=== PATIENT | female | born 1985 | race Hispanic/Latino ===

== ENCOUNTER 2020-06-04 09:13 | Emergency (ER) | payer OTHER ==
[~2020-06-04] VITALS: Ht 162.6 cm; Wt 60.8 kg
--- NOTE | 2020-06-04 09:59 | Emergency Department Note ---
History of Present Illnes History of Present Illness Chief Complaint: Skin Rash or Abscess History of Present Illness This is a 35 year old female Patient in from home with complaints of a painful abscess to her left axilla. Patient reports that it has been there 10 days and that she went to an urgent care where it was poked 4 times with a needle and squeezed and she was sent home on antibiotics (Bactrim DS x 7 days - has 1 dose left). Patient presents today with an approx. 1.5cm round indurated abscess to her left axilla with some reported drainage. Patient is not in any acute distress. VSS. Arrival Mode: Car Tier Over Required: No Onset (how long ago): day(s) (10) Location: left axilla Quality: abscess Radiation: Reports non-radiation Severity: moderate Onset quality: gradual Timing of current episode: constant Progression: unchanged Chronicity: new Context: Denies recent illness Relieving factors: none Exacerbating factors: none Associated symptoms: Reports denies other symptoms Past Medical/Family History Physician Review I have reviewed the patient's past medical and family history. Any updates have been documented here. Past Medical History Recent Fever: No Clinical Suspicion of Infectio: No New/Unexplained Change in Ment: No Other Surgery: breast augmentation Social History Smoking Cessation: Never Smoker Counseling Performed: No Alcohol Use: None Any Illegal Drug Use: No TB Exposure/Symptoms: No Physically hurt or threatened: No Family History Family history of heart diseas: No Other Any Pre-Existing Lines (PICC,: No Review of Systems Review of Systems Constitutional: Reports no symptoms EENTM: Reports no symptoms Cardiovascular: Reports no symptoms Respiratory: Reports no symptoms Gastrointestinal: Reports no symptoms Genitourinary: Reports no symptoms Musculoskeletal: Reports no symptoms Integumentary: Reports as per HPI Neurological: Reports no symptoms Psychological: Reports no symptoms Endocrine: Reports no symptoms Hematological/Lymphatic: Reports no symptoms Physical Exam Related Data Allergies: Coded Allergies: No Known Allergies (Unverified , 06/04/20) Triage Vital Signs Vital Signs Date Time Temp Pulse Resp B/P (MAP) Pulse Ox O2 Delivery O2 Flow Rate FiO2 06/04/20 09:17 97.2 86 16 125/87 100 Room Air Vital signs reviewed: Yes Physical Exam CONSTITUTIONAL Constitutional: Present well-developed, Present well-nourished HENT HENT: Present normocephalic, Present atraumatic, Present oropharynx clear/moist, Present nose normal HENT L/R: Present left ext ear normal, Present right ext ear normal EYES Eyes: Reports PERRL, Reports conjunctivae normal NECK Neck: Present ROM normal PULMONARY Pulmonary: Present effort normal, Present breath sounds normal CARDIOVASCULAR Cardiovascular: Present regular rhythm, Present heart sounds normal, Present capillary refill normal, Present normal rate GASTROINTESTINAL Abdominal: Present soft, Present nontender, Present bowel sounds normal GENITOURINARY Genitourinary: Present exam deferred SKIN Skin: Present warm, Present dry, Present lesion (4x2 cm abscess left axilla with a couple small puncture sites with purulent discharge, indurated at periphe ry, fluctuant in the middle) MUSCULOSKELETAL Musculoskeletal: Present ROM normal NEUROLOGICAL Neurological: Present alert, Present oriented x 3, Present no gross motor or sensory deficits PSYCHOLOGICAL Psychological: Present mood/affect normal, Present judgement normal Procedures Incision and Drain Emergent situation: No Type of anesthesia: local Risks and benefits discussed: Yes Verbal consent obtained: Yes Written consent obtained: No Consent given by: patient Imaging studies available/revi: not applicable Prepped and draped in sterile: Yes Two patient identifiers confir: name, date of , medical record number Identity confirmed by: patient Procedure verified: Yes Side verified: yes Site verified: yes Site marked: no Type: abscess Size: 4x2cm Site: other (left axilla) Skin preparation: Betadine Anesthesia method: local infiltration Patient sedated: No Incision type: single straight Incision depth: dermal Scalpel blade: 11 Wound management: probed and deloculated, irrigated with saline Drainage: purulent Drainage amount: moderate Packing used: 1/4 in iodoform gauze Patient tolerance: tolerated well Procedure attestation: I performed the procedure Assessment & Plan Medical Decision Making [facility] abscess - will I&D Reassessment Reassessment DC Home, Clindamycin 300 q6hr x 7 days, F/U PRABHAKAR Edwards prn, Tyl/Motrin as directed Assessment & Plan Final Impression: (1) Abscess of axilla, left Depart Disposition: HOME, SELF-CARE Last Vital Signs Date Time Temp Pulse Resp B/P (MAP) Pulse Ox O2 Delivery O2 Flow Rate FiO2 06/04/20 09:17 97.2 86 16 125/87 100 Room Air MARY ANN DANIELLE MD Jun 04, 2020 09:58
== END 2020-06-04 10:05 | disposition home or self-care (01) ==
LOC: ER 09:25
DX: L02.412 Cutaneous abscess of left axilla (principal)
CPT/HCPCS: 99284

== ENCOUNTER → 2020-06-09 | Day surgery (SDC) | payer OTHER ==
[~2020-06-09] MED LIST: CLINDAMYCIN HC150 MG PO; DEXAMETHASONE SOD PHOS INJ 4 MG/ML VIAL ONE; FENTANYL CITRATE/PF 100MCG/2 ML INJ ONE; HYDROCODONE/APAP 7.5MG-325MG 1 EA TAB ONE; LIDOCAINE HCL 2% LOCAL INJ 5 ML SDV VIAL INJ ONE; MIDAZOLAM HCL 2 MG/2 ML VIAL ONE; ONDANSETRON HCL INJ 2MG/ML 2ML 2 MG/ML VIAL ONE; PROPOFOL IV EMULSION 10 MG/ML 20 ML VIAL ONE; SEVOFLURANE INHAL SOLN 250 ML PEN BTL ONE
[2020-06-09 09:10] LABS: BASOPHILS % 0.4 % (0.0-1.0); EOSINOPHILS # (AUTO) 0.1 (0.0-0.4); EOSINOPHILS % 1.6 % (0.0-6.0); HEMATOCRIT 43.2 % (34.2-44.1); HEMOGLOBIN 14.2 g/dL (12.0-16.0); LYMPHOCYTES # (AUTO) 2.3 (1.0-3.2); LYMPHOCYTES % 33.2 % (18.0-39.1); MEAN CORPUSCULAR HEMOGLOBIN 27.9 pg (28-32); MEAN CORPUSCULAR HGB CONC 32.9 g/dL (31-35); MEAN CORPUSCULAR VOLUME 84.9 fL (81-99); MONOCYTES # (AUTO) 0.5 (0.2-0.8); MONOCYTES % 7.6 % (4.4-11.3); NEUTROPHILS # (AUTO) 3.9 (2.1-6.9); NEUTROPHILS % 56.6 % (38.7-80.0); PLATELET COUNT 295 x10e3/uL (140-360); RED BLOOD COUNT 5.09 x10e6/uL (3.6-5.1); RED CELL DISTRIBUTION WIDTH 12.1 % (11.7-14.4)
[2020-06-09 09:44] LABS: BLOOD UREA NITROGEN 13 mg/dL (7-26); BUN/CREATININE RATIO 19 (6-25); CALCIUM 9.2 mg/dL (8.4-10.2); CARBON DIOXIDE 27 mmol/L (22-29); CHLORIDE 104 mmol/L (98-107); EST GLOMERULAR FILTRATION RATE > 60 ML/MIN (60-); GLUCOSE 85 mg/dL (74-118); SODIUM 139 mmol/L (136-145)
--- NOTE | 2020-06-09 12:25 | Operative Report ---
DATE OF PROCEDURE: 06/09/2020 SURGEON: Dangelo Cabrera MD PREOPERATIVE DIAGNOSIS: Infected epidermal inclusion cyst of the left axilla with abscess formation, bilateral breast implant. POSTOPERATIVE DIAGNOSIS: Infected epidermal inclusion cyst of the left axilla with abscess formation, bilateral breast implant. PROCEDURE PERFORMED: Incision and drainage of infected cyst of the left axillary region with abscess formation and debridement of necrotic tissue. ANESTHESIA: LMA. ESTIMATED BLOOD LOSS: Minimal. DRAINS: None. COMPLICATIONS: None. INDICATIONS AND FINDINGS: The patient is a 35-year-old female, admitted for incision and drainage and debridement of infected cyst of the left axillary region. She had been started on oral antibiotic, drained as an outpatient and the patient was referred to my office for further follow up. She was found to have an abscess of the left axillary region that had been previously attempted to be drained at an outpatient clinic, this required further surgical treatment. INTRAOPERATIVE FINDINGS: Infected epidermal inclusion cyst of the left axillary regions with abscess formation, gross cyst lining and debris was removed down to grossly normal tissue. Aerobic and anaerobic cultures were taken. DESCRIPTION OF PROCEDURE: With the patient lying on the operative table in supine position after administration of general anesthesia, she was prepped and draped for incision and drainage of infected cyst of the left axillary region. The skin overlying the cyst with the granulation tissue was excised. The cavity entered. The cyst lining was removed as much as it could be done. Bleeding points were cauterized. The wound irrigated and packed with Betadine sponge. Sterile dressing was applied. The patient tolerated the procedure well, was taken to the recovery room in stable condition. MD MURTAZA Menchaca/MODL /[id number]
[2020-06-09 12:40] VITALS: BP 125/75
== END | disposition home or self-care (01) ==
LOC: OR 07:54
PROVIDERS: ATTEND Surgery
DX: L02.412 Cutaneous abscess of left axilla (principal); L72.0 Epidermal cyst; Z11.59 Encounter for screening for other viral diseases; Z86.19 Personal history of other infectious and parasitic diseases
CPT/HCPCS: 10060; 36415; 80048; 81025; 85025; 87071; 87205; J1100; J2001; J2250; J2405; J2704; J3010; U0002